=== PATIENT | female | born 1970 | race Caucasian/White ===

== ENCOUNTER 2021-11-11 08:15 | Emergency (ER) | payer MEDICARE, MEDICAID, SELFPAY ==
[2021-11-11 08:30] VITALS: BP 122/79; PULSE 104; RESP 18; TEMP 36.6; O2SAT 97
--- NOTE | 2021-11-11 08:44 | ED.SKABFB ---
HPI - Skin/Abscess/Foreign Bdy General Chief complaint: Skin/Abscess/Foreign Body Stated complaint: left side of face swollen and red Time Seen by Provider: 11/11/21 08:50 Source: patient and RN notes reviewed Mode of arrival: ambulatory Limitations: no limitations History of Present Illness HPI narrative: patient states that she felt like bite or a sting on her ear 2 days ago. Lorena more swelling began with redness. She has been putting on some antibiotic ointment and taking some Benadryl for the itching. She denies any fever chills. complaint: rash Onset (ago): day(s) (2) Location: face Severity: moderate Quality: burning, dull and constant Pain Consistency: constant Relieving factors: none Exacerbating factors: palpation Context: none Associated symptoms: denies other symptoms Treatments prior to arrival: OTC topical medication and Benadryl Related Data Home Medications Medication Instructions Recorded Confirmed acetic acid 5 drp RIGHT EAR QID 11/11/21 11/11/21 atorvastatin 40 mg PO DAILY 11/11/21 11/11/21 empagliflozin [Jardiance] 10 mg PO BID 11/11/21 11/11/21 hydroxychloroquine 200 mg PO BID 11/11/21 11/11/21 levothyroxine 25 mcg PO DAILY 11/11/21 11/11/21 levothyroxine 200 mcg PO DAILY 11/11/21 11/11/21 lorazepam 1 mg PO QID 11/11/21 11/11/21 naproxen 500 mg PO DAILY 11/11/21 11/11/21 semaglutide [Rybelsus] 14 mg PO QAM 11/11/21 11/11/21 tramadol 50 mg PO QID 11/11/21 11/11/21 Allergies Allergy/AdvReac Type Severity Reaction Status Date / Time Sulfa (Sulfonamide Allergy Severe Anaphylactic Verified 11/11/21 08:51 Antibiotics) Shock cephalexin [From Keflex] Allergy Rash Verified 11/11/21 08:51 Review of Systems Review of Systems: All systems reviewed & are unremarkable except as noted in HPI and below Constitutional: Constitutional: Denies chills and Denies fever(s) Respiratory: Respiratory: Denies cough and Denies dyspnea Gastrointestinal: Gastrointestinal: Denies nausea and Denies vomiting [facility] Past Medical History Medical History (Updated 11/11/21 @ 09:04 by Charles Fitzgerald MD) Arthritis Depression with anxiety Fibromyalgia Type 2 diabetes mellitus Surgical History Surgical History (Updated 11/11/21 @ 08:45 by Charles Fitzgerald MD) H/O elbow surgery History of section Hx of cholecystectomy Social History Social History (Updated 11/11/21 @ 08:45 by Charles Fitzgerald MD) Smoking packs per day: 1 Smoking cigarettes per day: 20.0 Smoking status: Current every day smoker Tobacco type: cigarettes Exam Const: General: healthy appearing, no acute distress and alert Nutritional Appearance: well nourished and obese morbidly obese Orientation/consciousness: patient oriented x3 HENMT: Head: normal to inspection General nose exam: Normal external nose present Mouth: Yes lip normal and Yes moist mucous membranes Eyes: Conjunctivae: conjunctivae normal Pupils: Equal, round and reactive pupils present EOM: EOMs intact bilaterally Neck: Neck: normal visual inspection and no lymphadenopathy Resp: Effort & Inspection: normal respiratory effort Auscultation: clear to auscultation bilaterally Cardio: Rate: regular rate Rhythm: regular rhythm GI: Auscultation: normal bowel sounds Back/Spine/Pelvis: Cervical Spine: cervical ROM normal Thoracic/Lumbar Spine: thoraco-lumbar ROM normal Skin: Rashes: rashes noted maculopapular rash left face surface erythematous and indurated, tender and other ( Erysipelas appearing rash around the pin and base of the left ear extending anteriorly over the TMJ and the left malar cheek) Neuro: General: patient oriented x3, moves all extremities, no meningeal signs, no focal motor deficits and CN's II-XI intact bilaterally Speech: normal speech Gait exam (Neuro): Normal gait present Extrem: General: normal to inspection and no clubbing, cyanosis or edema Psych: Appearance: grossly normal and well kempt Mental Status: mental statu
[2021-11-11] MEDS: PENICILLIN G BENZATHINE 1,200,000 UNITS/2 ML SYRINGE 2400000 UNITS IM (09:11)
== END 2021-11-11 09:30 | disposition home or self-care (01) ==
PROVIDERS: Emergency Provider Emergency Medicine
DX: A46 Erysipelas (principal)
CPT/HCPCS: 96372; 99283; J0561

== ENCOUNTER 2022-03-14 22:55 | Inpatient (IN) | payer MEDICARE, MEDICAID, SELFPAY ==
--- NOTE | ~2022-03-14 | XR_ITS ---
EXAMINATION: XR chest 1V portable INDICATION: Dizziness, COVID 19 positive TECHNIQUE: Portable AP chest at 2328 hours COMPARISON: 07/22/2018 FINDINGS: There are mild, diffuse interstitial and airspace opacities. No pleural effusion or pneumot horax identified. The cardiomediastinal silhouette size is within normal limits for technique. IMPRESSION: 1. Mild diffuse lung disease, likely pneumonia versus pulmonary edema. Reviewed, dictated and finalized at location A.
--- NOTE | 2022-03-14 23:07 | ED.DIZZY ---
HPI - Dizziness General Chief Complaint: Dizziness Stated Complaint: dehydration, dizziness Time Seen by Provider: 03/14/22 23:08 History of Present Illness HPI Narrative: 51-year-old female, Smoker with a history of hypertension, diabetes mellitus, hypothyroidism, dyslipidemia, RA was diagnosed to have COVID 2 days ago. She has been symptomatic for 1 week prior to that with nonproductive cough and upper respiratory symptoms. She presents to the ER with -- Ongoing nonproductive cough -- multiple episodes of diarrhea without any nausea and vomiting -- dizziness which started after she attempted to get off the commode. MD elicited complaint: dizziness and lightheadedness Onset (ago): hour(s) ( dizziness started 2 hours ago) Timing: sudden onset Severity: moderate Description: lightheadedness History of similar symptoms: No Exacerbating factors: change in body position Relieving factors: nothing Associated symptoms: denies other symptoms and nasal congestion Related Data Home Medications Medication Instructions Recorded Confirmed acetic acid 2 % ear solution 5 drp RIGHT EAR QID 11/11/21 03/14/22 atorvastatin 40 mg tablet 40 mg PO DAILY 11/11/21 03/14/22 empagliflozin 10 mg tablet 10 mg PO BID 11/11/21 03/14/22 (Jardiance) hydroxychloroquine 200 mg tablet 200 mg PO BID 11/11/21 03/14/22 levothyroxine 200 mcg tablet 200 mcg PO DAILY 11/11/21 03/14/22 levothyroxine 25 mcg tablet 25 mcg PO DAILY 11/11/21 03/14/22 lorazepam 1 mg tablet 1 mg PO QID 11/11/21 03/14/22 naproxen 500 mg tablet 500 mg PO DAILY 11/11/21 03/14/22 semaglutide 14 mg tablet (Rybelsus) 14 mg PO QAM 11/11/21 03/14/22 tramadol 50 mg tablet 50 mg PO QID 11/11/21 03/14/22 Allergies Allergy/AdvReac Type Severity Reaction Status Date / Time Sulfa (Sulfonamide Allergy Severe Anaphylactic Verified 03/14/22 23:11 Antibiotics) Shock cephalexin [From Keflex] Allergy Rash Verified 03/14/22 23:11 Review of Systems Review of Systems: All systems reviewed & are unremarkable except as noted in HPI and below Constitutional: Constitutional: Reports as per HPI and Reports no additional constitutional complaints Eyes: Eyes: Reports as per HPI and Reports no additional eye complaints ENT: Reports system reviewed and no additional complaints, except as documented and Reports nasal congestion Cardiovascular: Cardiovascular: Reports as per HPI and Reports no additional cardiovascular complaints Respiratory: Respiratory: Reports as per HPI and Reports cough Comments: denies shortness of breath Gastrointestinal: Gastrointestinal: Reports as per HPI and Reports diarrhea Genitourinary: Genitourinary: Reports no additional female genitourinary complaints Musculoskeletal: Musculoskeletal: Reports no additional musculoskeletal complaints and Reports as per HPI Integumentary/Breasts: Skin/Breast: Reports system reviewed and no additional complaints, except as docu and Reports as per HPI Neurologic: Reports system reviewed and no additional complaints, except as documented, Reports as per HPI and Reports dizziness Psychiatric: Psychiatric: Reports no additional psychiatric complaints and Reports as per HPI Endocrine: Endocrine: Reports no additional endocrine complaints and Reports as per HPI Hematologic/Lymphatic: Hematologic/Lymphatic: Reports no additional hematologic/lymphatic complaints and Reports as per HPI Allergic/Immunologic: Allergic/Immunologic: Reports no additional allergic/immunologic complaints [facility] Past Medical History Medical History Arthritis Depression with anxiety Fibromyalgia Type 2 diabetes mellitus Surgical History Surgical History (Updated 11/11/21 @ 08:45 by Charles Fitzgerald MD) H/O elbow surgery History of section Hx of cholecystectomy Social History Social History (Updated 11/11/21 @ 08:45 by Charles Fitzgerald MD) Smoking packs per day: 1 Smoking cigare
[2022-03-14 23:15] VITALS: BP 117/69; PULSE 64; RESP 18; TEMP 36.7; O2SAT 94
--- NOTE | 2022-03-14 23:18 | ECG_ITS ---
Measurements Intervals [place] Rate: 61 P: 68 [place]: 202 QRS: 33 QRSD: 87 T: 60 QT: 421 QTc: 425 Interpretive Statements SINUS RHYTHM BASELINE ARTIFACT NOTED GROSSLY NORMAL ECG LOW QRS VOLTAGE IN PRECORDIAL LEADS [QRS DEFLECTION < 1.0 mV IN CHEST LEADS] NO PREVIOUS ECG AVAILABLE FOR COMPARISON Electronically Signed On 03-15-2022 7:58:57 CDT by Dread German M.D.
[2022-03-14] MEDS: LACTATED RINGERS 1,000 ML 999 ML IV CONT (23:38)
[2022-03-14 23:40] LABS: Basophils Absolute Auto 0.01 K/mm3 (0.00-0.10); Basophils Percent Auto 0.2 % (0.0-1.0); Eosinophils Absolute Auto 0.16 K/mm3 (0.02-0.50); Eosinophils Percent Auto 3.9 % (1.0-6.0); Hematocrit 42.4 % (35.0-49.0); Hemoglobin 13.8 g/dL (12.0-15.0); Immature Granulocyte Absolute 0.02 K/mm3 (0.00-0.00); Immature Granulocyte Percent A 0.5 % (0.0-0.0); Lymphocytes Absolute Auto 1.53 K/mm3 (1.10-4.50); Lymphocytes Percent Auto 36.9 % (18.0-42.0); Mean Corpuscular HGB Conc 32.5 g/dL (32.0-36.0); Mean Corpuscular Hemoglobin 30.6 pg (27.0-31.0); Mean Platelet Volume 10.5 fl (9.2-11.8); Monocytes Absolute Auto 0.17 K/mm3 (0.10-0.90); Monocytes Percent Auto 4.1 % (2.0-11.0); Neutrophils Absolute Auto 2.3 K/mm3 (1.7-7.2); Neutrophils Percent Auto 54.4 % (50.0-70.0); Platelet Count Result 174 K/mm3 (150-420); Red Blood Count 4.51 M/mm3 (4.20-5.40); White Blood Count 4.2 K/mm3 (4.8-10.8)
[2022-03-14 23:56] LABS: Partial Thromboplastin Time 27.8 SEC (23.90-30.70); Prothrombin Time 10.9 Seconds (9.50-12.10)
[2022-03-15] LABS: Lactic Acid Reflex 0.4 mmol/L (0.4-2.0)
[2022-03-15 00:07] LABS: Alanine Aminotransferase 40 U/L (14-59); Albumin Level 3.4 g/dL (3.4-5.0); Alkaline Phosphatase 75 U/L (46-116); Anion Gap 6 mmol/L (8-16); Aspartate Amino Transferase 19 U/L (15-37); Bilirubin,Total 0.3 mg/dL (0.00-1.00); Blood Urea Nitrogen 9 mg/dL (7-18); Calcium 8.2 mg/dL (8.5-10.1); Carbon Dioxide 27 mmol/L (21-32); Chloride 111 mmol/L (98-108); Estimated Glomerular Filt Rate > 60; Glucose 125 mg/dL (70-99); NT Pro B Type Natriuretic Pept 104 pg/mL (0-125); Osmolality Calculated 297 mOsm/kg (285-295); Sodium 144 mmol/L (136-145); Total Protein 6.3 g/dL (6.4-8.2)
[2022-03-15 00:08] LABS: D Dimer 0.43 mg/L (0.19-0.50)
[2022-03-15 00:11] LABS: Troponin I 9.2 ng/L (0.00-60.4)
[2022-03-15 00:17] LABS: Lipase 55 U/L (73-393)
[2022-03-15 00:19] LABS: SARS-CoV-2 RNA PCR Positive (Negative)
[2022-03-15 00:34] LABS: Influenza Control Valid (Valid)
[2022-03-15 01:42] LABS: CRP < 0.5 mg/dL (0.0-0.9)
[2022-03-15 01:55] VITALS: BP 135/87; PULSE 61; RESP 16; O2SAT 95
[2022-03-15 02:59] VITALS: BP 141/87; PULSE 63; RESP 18; TEMP 36.2; O2SAT 96
[2022-03-15 03:00] VITALS: PULSE 63
[2022-03-15] MEDS: REMDESIVIR 200 MG/NS 250 ML 200 MG/250 ML BAG 250 MG IVPB (03:20)
[2022-03-15] MEDS: LEVOTHYROXINE SODIUM 25 MCG TABLET PO (06:18)
[2022-03-15] MEDS: LEVOTHYROXINE SODIUM 100 MCG TABLET 200 MCG PO (06:18)
--- NOTE | 2022-03-15 06:59 | ADMGEN ---
This patient, Stacie Perez, was admitted to 2nd Floor Room 210-1. Patient/family oriented to hospital policies and general routines including ID bracelet, bed and alarms, visiting hours, pain management, procedures, bathroom and other care routines, personal items, smoking policy, room service/diet, and visiting hours. Information on how to activate the Rapid Response Team has been discussed. Patient/Family are encouraged to report perceived risks to care and to ask questions if they do not understand what they are told or what they should do.
[2022-03-15 07:39] VITALS: PULSE 66
[2022-03-15 07:48] VITALS: BP 137/88; PULSE 63; RESP 18; TEMP 36.6; O2SAT 94
[2022-03-15] MEDS: ENOXAPARIN 40 MG/0.4 ML SYRINGE SUB-Q (08:08)
[2022-03-15] MEDS: ATORVASTATIN 40 MG TABLET PO (08:08)
[2022-03-15] MEDS: POTASSIUM CHLORIDE 20 MEQ TABLET PO (08:09)
[2022-03-15] MEDS: EMPAGLIFLOZIN 10 MG TABLET PO (08:53)
--- NOTE | 2022-03-15 10:53 | PM.SD2 ---
Same Day Admit/Disch: HPI History of Present Illness Chief complaint: dehydration, dizziness Narrative: Stacie Perez is a 51 year old female that presented to the emergency room with some dizziness and diarrhea patient is positive for COVID-19. Patient was admitted with some hypokalemia potassium was 3.0 first dose of remdesivir was given in the emergency room patient placed on droplet isolation and resting in the room. [facility] Past Medical History Medical History Arthritis Depression with anxiety Fibromyalgia Type 2 diabetes mellitus Surgical History Surgical History H/O elbow surgery History of section Hx of cholecystectomy Social History Social History Smoking packs per day: 1 Smoking cigarettes per day: 20.0 Smoking status: Current every day smoker Tobacco type: cigarettes Second hand tobacco smoke exposure: No Alcohol intake: unknown Substance use: never Substance use type: does not use Spiritual care concerns: No Comments At time as signature, I have reviewed and agree with nursing past medical, social, surgical and family history. Please see nursing chart for further information. There is no relevant family history pertinent to the presenting complaint. Same Day Admit/Disch: Med Pre-admit Medications Home Medications Medication Instructions Recorded Confirmed Type acetic acid 2 % ear solution 5 drp RIGHT EAR QID 11/11/21 03/14/22 History atorvastatin 40 mg tablet 40 mg PO DAILY 11/11/21 03/14/22 History empagliflozin 10 mg tablet 10 mg PO BID 11/11/21 03/14/22 History (Jardiance) hydroxychloroquine 200 mg tablet 200 mg PO BID 11/11/21 03/14/22 History levothyroxine 200 mcg tablet 200 mcg PO DAILY 11/11/21 03/14/22 History levothyroxine 25 mcg tablet 25 mcg PO DAILY 11/11/21 03/14/22 History lorazepam 1 mg tablet 1 mg PO QID 11/11/21 03/14/22 History naproxen 500 mg tablet 500 mg PO DAILY 11/11/21 03/14/22 History semaglutide 14 mg tablet (Rybelsus) 14 mg PO QAM 11/11/21 03/14/22 History tramadol 50 mg tablet 50 mg PO QID 11/11/21 03/14/22 History potassium chloride 20 mEq 20 meq PO BIDWM #6 tabs 03/15/22 Rx tablet,extended release (K-Tab) Exam Narrative: GENERAL:Well-appearing, well-nourished, and in no acute distress. Sweaty HEAD:Normocephalic, atraumatic. EYES: PERRLA and EOMI. ENT: Nares clear, no rhinorrhea or epistaxis. Mucous membranes moist. CHEST: Clear to auscultation. No respiratory distress. HEART: Regular rate and rhythm. Normal peripheral pulses. ABDOMEN: Soft, nontender, nondistended, normal active bowel sounds. EXTREMITIES: Normal range of motion. No edema. SKIN: Warm, dry, no rash. NEURO: No focal deficits. Alert and oriented x3. DS: Data Data Completed and Pending Labs on day of discharge: Labs from last 24 hours 03/15/22 03/14/22 03/14/22 01:15 23:32 23:31 WBC RBC Hgb Hct MCV MCH MCHC RDW Plt Count MPV Immature Gran % (Auto) Neut % (Auto) Lymph % (Auto) [place] % (Auto) Eos % (Auto) Baso % (Auto) Lymph # (Auto) [place] # (Auto) Eos # (Auto) Baso # (Auto) Abs Immat Gran (auto) Absolute Neuts (auto) Absolute Nucleated RBC Nucleated RBC % PT INR APTT D-Dimer Sodium 144 Potassium 3.0 L Chloride 111 H Carbon Dioxide 27 Anion Gap 6 L BUN 9 Creatinine 0.71 Estim Creat Clear Calc Not Reportable Estimated GFR > 60 Glucose 125 H Calculated Osmolality 297 H Lactic Acid Calcium 8.2 L Total Bilirubin 0.3 AST 19 ALT 40 Alkaline Phosphatase 75 Troponin I 9.2 C-Reactive Protein < 0.5 NT-Pro-B Natriuret Pep 104 Total Protein 6.3 L Albumin 3.4 Lipase 55 L Influenza Type A Ag Influenza Type B Ag IZZY
[2022-03-15 12:00] VITALS: BP 128/76; PULSE 66; PULSE 68; RESP 18; TEMP 36.7; O2SAT 95
--- NOTE | 2022-03-15 13:28 | PC.NURSE ---
Discharge instructions given to patient. IV and telemetry device removed. Patient voices understanding of discharge instructions and is actively looking for a ride home at this time.
--- NOTE | 2022-03-15 13:45 | PC.NURSE ---
Patient left unit in w/c accompanied by instructional writer in w/c. Public transport service escorted patient off campus to home.
--- NOTE | 2022-03-18 15:50 | PC.NURSE ---
Unable to contact for discharge call back.
== END 2022-03-15 13:45 | disposition home or self-care (01) | DRG 177 ==
LOC: CHSED 03-15 01:23 → CHS2ND 03-15 11:09
PROVIDERS: Admitting Provider Internal Medicine; Emergency Provider Internal Medicine Critical Care Medicine; Visit Provider Internal Medicine
DX: U07.1 COVID-19 (principal); J12.82 Pneumonia due to coronavirus disease 2019; E87.6 Hypokalemia; E11.9 Type 2 diabetes mellitus without complications; E06.3 Autoimmune thyroiditis; M06.9 Rheumatoid arthritis, unspecified; M79.7 Fibromyalgia; F17.210 Nicotine dependence, cigarettes, uncomplicated; F32.A Depression, unspecified
CPT/HCPCS: 36415; 71045; 80053; 83605; 83690; 83880; 84484; 85025; 85380; 85610; 85730; 86140; 87040; 87804; 93005; 96360; 99285; A9270; C9803; J0248; J0456; J1650; J7120; U0003; U0005

== ENCOUNTER 2022-09-04 18:05 | Emergency (ER) | payer MEDICARE, MEDICAID, SELFPAY ==
[2022-09-04 19:35] VITALS: BP 140/80; PULSE 94; RESP 18; TEMP 36.6; O2SAT 99
--- NOTE | 2022-09-04 20:07 | ED.ALLEREA ---
HPI - Allergic Reaction General Chief complaint: Allergic Reaction Stated complaint: allergic reaction Time Seen by Provider: 09/04/22 18:06 Source: patient Mode of arrival: ambulatory Limitations: no limitations History of Present Illness HPI narrative: this is a 52-year-old female with lesion on her posterior scalp that is open and draining apparently had use some shampoo causing inflammation to her scalp and to her right ear with some pain and itching with no fever chills. MD complaint: allergic reaction Onset (ago): day(s) Symptoms: rash, itching and other ( lesion on posterior scalp) Related Data Home Medications Medication Instructions Recorded Confirmed acetic acid 2 % ear solution 5 drp RIGHT EAR QID 11/11/21 09/04/22 atorvastatin 40 mg tablet 40 mg PO DAILY 11/11/21 09/04/22 empagliflozin 10 mg tablet 10 mg PO BID 11/11/21 09/04/22 (Jardiance) hydroxychloroquine 200 mg tablet 200 mg PO BID 11/11/21 09/04/22 levothyroxine 200 mcg tablet 200 mcg PO DAILY 11/11/21 09/04/22 levothyroxine 25 mcg tablet 25 mcg PO DAILY 11/11/21 09/04/22 lorazepam 1 mg tablet 1 mg PO QID 11/11/21 09/04/22 naproxen 500 mg tablet 500 mg PO DAILY 11/11/21 09/04/22 semaglutide 14 mg tablet (Rybelsus) 14 mg PO QAM 11/11/21 09/04/22 tramadol 50 mg tablet 50 mg PO QID 11/11/21 09/04/22 bupropion HCl 150 mg 24 hr tablet, 150 mg PO DAILY 09/04/22 09/04/22 extended release citalopram 40 mg tablet 40 mg PO DAILY 09/04/22 09/04/22 glipizide 10 mg tablet 10 mg PO DAILY 09/04/22 09/04/22 magnesium oxide 500 mg tablet 500 mg PO DAILY 09/04/22 09/04/22 Allergies Allergy/AdvReac Type Severity Reaction Status Date / Time Sulfa (Sulfonamide Allergy Severe Anaphylactic Verified 09/04/22 19:57 Antibiotics) Shock cephalexin [From Keflex] Allergy Rash Verified 09/04/22 19:57 gabapentin AdvReac Confusion Verified 09/04/22 19:57 Review of Systems Review of Systems: All systems reviewed & are unremarkable except as noted in HPI and below PMFSH Past Medical History Medical History Arthritis Depression with anxiety Fibromyalgia Type 2 diabetes mellitus Surgical History Surgical History H/O elbow surgery History of section Hx of cholecystectomy Social History Social History Smoking packs per day: 1 Smoking cigarettes per day: 20.0 Smoking status: Current every day smoker Tobacco type: cigarettes Second hand tobacco smoke exposure: No Alcohol intake: unknown Substance use: never Substance use type: does not use Spiritual care concerns: No Exam Const: General: healthy appearing Nutritional Appearance: well nourished Limitations: no limitations HENMT: Head: normal to inspection Ears: external ears normal ( Tenderness and itching right ear) Face and sinus: normal facial exam Mouth: Yes Normal oral and palatal mucosa present Eyes: Conjunctivae: conjunctivae normal Pupils: Equal, round and reactive pupils present EOM: EOMs intact bilaterally Neck: Neck: normal visual inspection Chest: Chest palpation & inspection: normal inspection of the chest Resp: Effort & Inspection: normal respiratory effort Auscultation: clear to auscultation bilaterally Cardio: Rhythm: regular rhythm GI: GI Palp: Yes Soft to palpation Auscultation: normal bowel sounds : General: Yes bladder normal to palpation Urinary Catheter: Urinary Catheter: patent and draining Back/Spine/Pelvis: Back: no CVA tenderness Skin: General skin exam: normal color Other: lesion that is draining on the posterior mid scalp Neuro: General: patient oriented x3 Cranial nerves: Yes Nystagmus not present Speech: normal speech Gait exam (Neuro): Normal gait present Extrem: General: normal to inspection Psych: Mental Status: mental status grossly normal Affect: normal
[2022-09-04] MEDS: CLINDAMYCIN HCL 150 MG CAP 300 MG PO (20:26)
[2022-09-04] MEDS: methylPREDNISolone ACETATE 40 MG/ML VIAL 80 MG IM (20:27)
[2022-09-04] MEDS: predniSONE 20 MG TABLET PO (20:27)
[2022-09-04] MEDS: NAPROXEN 250 MG TABLET 500 MG PO (20:27)
[2022-09-04 20:55] VITALS: BP 138/80; PULSE 80; RESP 18; TEMP 36.7; O2SAT 98
== END 2022-09-04 20:55 | disposition home or self-care (01) ==
PROVIDERS: Emergency Provider Emergency Medicine
DX: L02.811 Cutaneous abscess of head [any part, except face] (principal); F41.9 Anxiety disorder, unspecified; F32.9 Major depressive disorder, single episode, unspecified; E11.9 Type 2 diabetes mellitus without complications; F17.210 Nicotine dependence, cigarettes, uncomplicated; Z79.1 Long term (current) use of non-steroidal anti-inflammatories (NSAID); Z79.891 Long term (current) use of opiate analgesic
CPT/HCPCS: 96372; 99283; A9270; J1030; J7512

== ENCOUNTER 2023-06-13 10:15 | Observation (INO) | payer MEDICARE, MEDICAID, SELFPAY ==
[2023-06-13] VITALS (27 sets, daily range): BP systolic 111–162; BP diastolic 79–96; PULSE 53–96; RESP 11–21; TEMP 36.3–36.8; O2SAT 93–98; BMI 43.0
--- NOTE | ~2023-06-13 | XR_ITS ---
XR chest 2V 06/13/2023 10:49 Indication: Chest pain Procedure: AP and lateral views of the chest Comparison: 03/14/2022 Findings: Heart size upper normal. No focal air space disease, pulmonary edema, pleural effusion or s uspected pneumothorax. There is a new pulmonary nodule left upper thorax measuring 12 mm. Impression: 1: No acute cardiopulmonary disease. 2: New 12 mm nodule left upper thorax which may represent chronic granulomatous disease, although mal ignancy not excluded. Reviewed, dictated and finalized at location A. Impression: 1: No acute cardiopulmonary disease. 2: New 12 mm nodule left upper thorax which may represent chronic granulomatous disease, although malignancy not excluded.
--- NOTE | ~2023-06-13 | CT_ITS ---
EXAMINATION: CTA chest PE protocol DATE: 06/13/2023 11:50 CDT INDICATION: Chest pain and shortness of breath TECHNIQUE: Computed tomographic angiography (CTA) of the chest was performed with 100 mL Omnipaque-35 0 intravenous contrast. The dose-length product was 915.06 mGy-cm. Maximum intensity projection 3D-re constructions of the aorta and other arteries were constructed by the technologist on a separate work station. COMPARISON: Chest dated 06/13/2023. FINDINGS: Study is technically adequate without evidence for pulmonary embolism. No evidence for aort ic aneurysm or dissection. There is an 11 mm right upper lobe nodule abutting the pulmonary artery, i mage 87. There is mediastinal lymphadenopathy. No significant pleural or pericardial effusion. Status post cholecystectomy. There is dependent atelectasis. No pneumothorax. There is emphysema. There are patchy groundglass opacities which may reflect atelectasis or pneumonia. There is a 5 mm right lower lobe nodule, image 52. Mild thoracic spondylosis. IMPRESSION: 1. No evidence for pulmonary embolism. 2: Patchy groundglass opacities with dependent atelectasis. Cannot exclude superimposed pneumonia. 3: Right upper and lower lobe nodules, largest in the upper lobe measuring 11 mm. Recommend follow-up low dose CT chest in 3 months or pet/CT examination. 4: Mediastinal lymphadenopathy, nonspecific. Reviewed, dictated and finalized at location A. IMPRESSION: 1. No evidence for pulmonary embolism. 2: Patchy groundglass opacities with dependent atelectasis. Cannot exclude sup erimposed pneumonia. 3: Right upper and lower lobe nodules, largest in the upper lobe measuring 11 m m. Recommend follow-up low dose CT chest in 3 months or pet/CT examination. 4: Mediastinal lymphadenopathy, nonspecific.
--- NOTE | 2023-06-13 10:18 | ECG_ITS ---
Measurements Intervals [place] Rate: 64 P: 34 MT: 181 QRS: -6 QRSD: 110 T: 113 QT: 404 QTc: 418 Interpretive Statements SINUS RHYTHM DELAYED PRECORDIAL R/S TRANSITION ST-T WAVE ABNORMALITY IN ANTERIOR LEADS- CONSIDER ISCHEMIA ABNORMAL ECG COMPARED TO ECG 03/14/2022 23:47:15 ST-T WAVE ABNORMALITY NOW PRESENT Electronically Signed On 06-13-2023 10:49:15 CDT by Jethro Rossi D.O.
--- NOTE | 2023-06-13 10:31 | ED.GENADULT ---
HPI - General Adult General Chief complaint: Chest Pain Stated complaint: chest pain Time Seen by Provider: 06/13/23 10:21 History of Present Illness HPI narrative: Stacie Perez is a 53 y/o female with PMHx of DM, HLD, Smoker, hypothyroidism, anxiety, depression, RA, Fibromyalgia who presents today with reports of having bilateral shoulder and chest tightness that started about 1 and a half hours [employer]. She states that she woke up today at around 0600 and felt anxious so she took her PO Ativan. She went to work and then at around 0900 she started to feel more anxious with tightness in her shoulders and chest and she feels like it is hard to take a deep breath. Denies hx of IA/Cardiac Stents/ cardiac surgery in the past. Related Data Home Medications Medication Instructions Recorded Confirmed acetic acid 2 % ear solution 5 drp RIGHT EAR QID 11/11/21 09/04/22 atorvastatin 40 mg tablet 40 mg PO DAILY 11/11/21 09/04/22 empagliflozin 10 mg tablet 10 mg PO BID 11/11/21 09/04/22 (Jardiance) hydroxychloroquine 200 mg tablet 200 mg PO BID 11/11/21 09/04/22 levothyroxine 200 mcg tablet 200 mcg PO DAILY 11/11/21 09/04/22 levothyroxine 25 mcg tablet 25 mcg PO DAILY 11/11/21 09/04/22 lorazepam 1 mg tablet 1 mg PO QID 11/11/21 09/04/22 naproxen 500 mg tablet 500 mg PO DAILY 11/11/21 09/04/22 semaglutide 14 mg tablet (Rybelsus) 14 mg PO QAM 11/11/21 09/04/22 tramadol 50 mg tablet 50 mg PO QID 11/11/21 09/04/22 bupropion HCl 150 mg 24 hr tablet, 150 mg PO DAILY 09/04/22 09/04/22 extended release citalopram 40 mg tablet 40 mg PO DAILY 09/04/22 09/04/22 glipizide 10 mg tablet 10 mg PO DAILY 09/04/22 09/04/22 magnesium oxide 500 mg tablet 500 mg PO DAILY 09/04/22 09/04/22 Allergies Allergy/AdvReac Type Severity Reaction Status Date / Time Sulfa (Sulfonamide Allergy Severe Anaphylactic Verified 09/04/22 19:57 Antibiotics) Shock cephalexin [From Keflex] Allergy Rash Verified 09/04/22 19:57 gabapentin AdvReac Confusion Verified 09/04/22 19:57 Review of Systems Review of Systems: CONSTITUTIONAL: Denies fever, chills, or sweats. EYES: Denies visual changes, redness, or discharge. ENT: Denies rhinorrhea, congestion, sore throat, or otalgia. CARDIOVASCULAR: Reports chest tightness severity of a 7/10 RESPIRATORY: Denies cough or dyspnea. GASTROINTESTINAL: Denies abdominal pain, nausea, vomiting, or diarrhea. GENITOURINARY: Denies dysuria or hematuria. SKIN: Denies rash or itching. MUSCULOSKELETAL: Denies back pain, joint pain, or myalgia. NEUROLOGIC: Denies headache, numbness, dizziness, or weakness. PSYCHIATRIC: Denies anxiety or depression. [facility] Past Medical History Medical History Arthritis Depression with anxiety Fibromyalgia Type 2 diabetes mellitus Surgical History Surgical History H/O elbow surgery History of section Hx of cholecystectomy Social History Social History Smoking packs per day: 1 Smoking cigarettes per day: 20.0 Smoking status: Current every day smoker Tobacco type: cigarettes Second hand tobacco smoke exposure: No Alcohol intake: unknown Substance use: never Substance use type: does not use Spiritual care concerns: No Exam Narrative: GENERAL: Well-appearing, well-nourished, and in no acute distress. HEAD: Normocephalic, atraumatic. EYES: PERRLA and EOMI. ENT: Nares clear, no rhinorrhea or epistaxis. Mucous membranes moist. Oropharynx without tonsillar hypertrophy exudate or other lesions. NECK: Supple. No adenopathy or masses. No carotid bruits or JVD CHEST:No respiratory distress. No wheezes rales or rhonchi HEART: Regular rate and rhythm. No murmur heard. Normal peripheral pulses. ABDOMEN: Soft, nontender, nondistended, normal active bowel sounds. EXTREMITIES: Normal range of motion. No edema. SK
[2023-06-13 10:45] LABS: Basophils Absolute Auto 0.1 K/mm3 (0.0-0.1); Basophils Percent Auto 0.7 % (0.2-1.2); Eosinophils Absolute Auto 0.3 K/mm3 (0-0.3); Eosinophils Percent Auto 4.9 % (0-4.4); Hematocrit 42.9 % (37.0-47.0); Hemoglobin 14.6 g/dL (12.0-15.0); Immature Granulocyte Absolute 0.02 K/mm3 (0.00-0.031); Immature Granulocyte Percent A 0.3 % (0-0.5); Lymphocytes Absolute Auto 1.52 K/mm3 (0.9-3.2); Lymphocytes Percent Auto 22.5 % (18.3-44.2); Mean Corpuscular Hemoglobin 32.7 pg (26-34); Mean Platelet Volume 11.4 fl (7.4-10.4); Monocytes Absolute Auto 0.3 K/mm3 (0.1-0.6); Monocytes Percent Auto 3.7 % (2.6-8.5); Neutrophils Absolute Auto 4.6 K/mm3 (1.3-6.7); Neutrophils Percent Auto 67.9 % (45.5-73.1); Platelet Count Result 166 k/mm3 (150-375); Red Blood Count 4.47 M/mm3 (4.2-5.4); Red Cell Distribution Width 13.7 % (11.5-14.5); White Blood Count 6.8 K/mm3 (4.5-10.0)
[2023-06-13 10:56] LABS: Alanine Aminotransferase 25 U/L (6-35); Albumin Level 4.5 g/dL (3.5-5.1); Alkaline Phosphatase 74 U/L (38-126); Anion Gap 10 mmol/L (8-16); Aspartate Amino Transferase 22 U/L (14-36); Bilirubin,Total 0.7 mg/dL (0.2-1.3); Blood Urea Nitrogen 14 mg/dL (7-17); Calcium 9.1 mg/dL (8.4-10.2); Carbon Dioxide 23 mmol/L (22-30); Chloride 100 mmol/L (98-107); Estimated CRCL calculation 113 ml/min; Estimated Glomerular Filt Rate > 60; Glucose 424 mg/dL (65-110); Lipase 58 U/L (23-300); Prothrombin Time 13.5 Seconds (11.1-14.7); Sodium 133 mmol/L (137-145)
[2023-06-13 10:57] LABS: Partial Thromboplastin Time 32.5 SECONDS (22.3-36.8)
[2023-06-13 11:07] LABS: Troponin I < 0.012 ng/mL (0.000-0.034)
[2023-06-13] MEDS: SODIUM CHLORIDE 0.9% IV 1,000 ML 999 ML IV CONT (11:14)
[2023-06-13 12:44] LABS: Glucose Point of Care 346 mg/dl (65-105)
[2023-06-13 13:41] LABS: Troponin I < 0.012 ng/mL (0.000-0.034)
[2023-06-13 14:05] LABS: Glucose Point of Care 345 mg/dl (65-105)
--- NOTE | 2023-06-13 14:48 | PC.NURSE ---
This patient, Stacie Perez, was admitted to Medical Room 252-01. Patient/family oriented to hospital policies and general routines including ID bracelet, bed and alarms, visiting hours, pain management, procedures, bathroom and other care routines, personal items, smoking policy, room service/diet, and visiting hours. Information on how to activate the Rapid Response Team has been discussed. Patient/Family are encouraged to report perceived risks to care and to ask questions if they do not understand what they are told or what they should do.
--- NOTE | 2023-06-13 14:48 | PM.IMHP ---
H&P: HPI History of Present Illness Date/Time: 06/13/23 14:48 Chief Complaint: chest tightness Narrative: This is a 53-year-old female patient with a history diabetes fibromyalgia, rheumatoid arthritis depression and anxiety who presented to emergency with chest tightness radiated into the back. Patient reports that she smokes heavily since she was a teenager. She notes an occasional but no difficulty breathing at this time. In the emergency department patient received 1 L of normal saline IV bolus was found to blood sugar over 400 on chemistry panel. Sodium was also noted to be decreased 133 but when corrected for glucose the true value is between [address] imaging of the chest shows 2 pulmonary nodules with recommended repeat imaging in 3 months. When patient found about this she became very tearful and wanted to leave against medical advice. She spoke to her family on phone and eventually decided to stay in the hospital. Meanwhile, repeat troponins have remained negative. EKG nonischemic. CTA negative for PE. Patient's noted chest tightness is improved. Patient reports that she recently moved few months ago and has not been back to see her primary care provider so she has run out of several medications including her medicines for diabetes. Review of Systems Review of Systems: All systems reviewed & are unremarkable except as noted in HPI and below PMFSH Past Medical History Medical History (Updated 06/13/23 @ 21:30 by Philip Delgado APRN) Arthritis Depression with anxiety Fibromyalgia Type 2 diabetes mellitus Surgical History Surgical History H/O elbow surgery History of section Hx of cholecystectomy Social History Social History Smoking packs per day: 1 Smoking cigarettes per day: 20.0 Years smoked: 37 Smoking pack-years: 37.00 Smoking status: Current every day smoker Tobacco type: cigarettes Second hand tobacco smoke exposure: No Alcohol intake: never Substance use: never Substance use type: does not use Lack of Transportation: YES Lack of Food: Sometimes True Current Housing: I Have Housing Concerned About Future Housing: No Difficulty Paying Gas/Electric Bills: No Difficulty Paying for Meds: No Currently Unemployed: No Education: Bachelor's Degree Difficulty w/ Childcare or Family Care: No Spiritual care concerns: No Meds Home Medications and Allergies Home Medications Medication Instructions Recorded Confirmed Type atorvastatin 40 mg tablet 40 mg PO DAILY 11/11/21 06/13/23 History empagliflozin 10 mg tablet 10 mg PO BID 11/11/21 06/13/23 History (Jardiance) hydroxychloroquine 200 mg tablet 200 mg PO BID 11/11/21 06/13/23 History levothyroxine 200 mcg tablet 200 mcg PO DAILY 11/11/21 06/13/23 History levothyroxine 25 mcg tablet 25 mcg PO DAILY 11/11/21 06/13/23 History lorazepam 1 mg tablet 1 mg PO QID PRN Anxiety 11/11/21 06/13/23 History semaglutide 14 mg tablet (Rybelsus) 14 mg PO QAM 11/11/21 06/13/23 History bupropion HCl 150 mg 24 hr tablet, 150 mg PO DAILY 09/04/22 06/13/23 History extended release citalopram 40 mg tablet 40 mg PO DAILY 09/04/22 06/13/23 History glipizide 10 mg tablet 10 mg PO DAILY 09/04/22 06/13/23 History naproxen 500 mg tablet 500 mg PO BID PRN pain #14 tabs 09/04/22 06/13/23 Rx tramadol 50 mg tablet 50 mg PO QID PRN Pain 06/13/23 06/13/23 History Allergies Allergy/AdvReac Type Severity Reaction Status Date / Time Sulfa (Sulfonamide Allergy Severe Anaphylactic Verified 09/04/22 19:57 Antibiotics) Shock cephalexin [From Keflex] Allergy Rash Verified 09/04/22 19:57 gabapentin AdvReac Confusion Verified 09/04/22 19:57 Vital Signs Vital Signs - 24 hr 06/13/23 10:17 06/13/23 10:31 06/13/23 10:49 Temperature 36.3 C L Pulse Rate 67 62 Respiratory Rate 14 14 Blood Pressur
[2023-06-13 16:22] LABS: Hemoglobin A1C 11.2 % (<5.7)
[2023-06-13 16:39] LABS: Troponin I < 0.012 ng/mL (0.000-0.034)
[2023-06-13 17:06] LABS: Glucose Point of Care 286 mg/dl (65-105)
[2023-06-13] MEDS: INSULIN ASPART (*BKC) 100 UNITS/ML SUB-Q ×2 (18:00→21:12)
[2023-06-13] MEDS: HYDROXYCHLOROQUINE SULFATE 200 MG TABLET PO (18:32)
[2023-06-13] MEDS: SODIUM CHLORIDE 0.9% IV 1,000 ML 250 ML IV CONT (18:33)
[2023-06-13 21:47] LABS: Glucose Point of Care 298 mg/dl (65-105)
[2023-06-13 22:05] LABS: Glucose Point of Care 227 mg/dl (65-105)
[2023-06-13] MEDS: SODIUM CHLORIDE 0.9% IV 1,000 ML 100 ML IV CONT (22:35)
[2023-06-14] VITALS: PULSE 54
[2023-06-14 04:00] VITALS: PULSE 55
[2023-06-14 05:24] VITALS: BP 111/69; PULSE 55; RESP 16; TEMP 36.5; O2SAT 96
[2023-06-14 05:54] LABS: Hematocrit 40.4 % (37.0-47.0); Hemoglobin 13.7 g/dL (12.0-15.0); Mean Corpuscular HGB Conc 33.9 g/dl (32-36); Mean Corpuscular Hemoglobin 32.9 pg (26-34); Mean Corpuscular Volume 96.9 fl (80-100); Mean Platelet Volume 11.2 fl (7.4-10.4); Platelet Count Result 160 k/mm3 (150-375); Red Blood Count 4.17 M/mm3 (4.2-5.4); Red Cell Distribution Width 13.5 % (11.5-14.5); White Blood Count 5.9 K/mm3 (4.5-10.0)
[2023-06-14] MEDS: LEVOTHYROXINE SODIUM 25 MCG TABLET PO (05:59)
[2023-06-14] MEDS: LEVOTHYROXINE SODIUM 100 MCG TABLET 200 MCG PO (05:59)
[2023-06-14 06:19] LABS: Alanine Aminotransferase 24 U/L (6-35); Albumin Level 3.9 g/dL (3.5-5.1); Alkaline Phosphatase 54 U/L (38-126); Anion Gap 5 mmol/L (8-16); Aspartate Amino Transferase 22 U/L (14-36); Bilirubin,Total 0.8 mg/dL (0.2-1.3); Blood Urea Nitrogen 8 mg/dL (7-17); Calcium 8.3 mg/dL (8.4-10.2); Carbon Dioxide 25 mmol/L (22-30); Chloride 106 mmol/L (98-107); Estimated CRCL calculation 113 ml/min; Estimated Glomerular Filt Rate > 60; Glucose 220 mg/dL (65-110); Potassium 3.9 mmol/L (3.4-5.0); Sodium 136 mmol/L (137-145)
[2023-06-14 08:00] VITALS: PULSE 61
[2023-06-14 08:19] LABS: Glucose Point of Care 241 mg/dl (65-105)
[2023-06-14] MEDS: INSULIN ASPART (*BKC) 100 UNITS/ML SUB-Q (08:33)
[2023-06-14] MEDS: SODIUM CHLORIDE 0.9% IV 1,000 ML 100 ML IV CONT (08:33)
[2023-06-14] MEDS: ATORVASTATIN 40 MG TABLET PO (08:34)
[2023-06-14] MEDS: CITALOPRAM HYDROBROMIDE 20 MG TABLET 40 MG PO (08:34)
[2023-06-14] MEDS: buPROPion HCL XL (24 HR) 150 MG TABCR PO (08:34)
[2023-06-14] MEDS: glipiZIDE 5 MG TABLET 10 MG PO (08:35)
[2023-06-14] MEDS: ENOXAPARIN 40 MG/0.4 ML SYRINGE SUB-Q (08:35)
[2023-06-14] MEDS: HYDROXYCHLOROQUINE SULFATE 200 MG TABLET PO (08:36)
--- NOTE | 2023-06-14 10:16 | PM.DS ---
DS: Admitting Diagnosis Discharge Date 06/14/2023 Admitting Diagnosis Chest pain DS: Discharge Diagnosis Discharge Diagnosis (1) Feeling of chest tightness: Code(s): R07.89 - Other chest pain Status: Acute Assessment and Plan: Negative troponin, CTA negative for PE, basal atelectasis noted do not suspect pneumonia as patient is afebrile and normal white blood cell count. This is likely a combination of elevated glucose and anxiety. (2) Type 2 diabetes mellitus: Code(s): E11.9 - Type 2 diabetes mellitus without complications Status: Acute Assessment and Plan: Hemoglobin A1c 11.2. Patient reports she has not been taking her diabetes medication because she moved and has not continue to see primary care. Restart glipizide. ACHS fingerstick glucose with corrective insulin sliding scale. Ordered additional IV fluids for hyperglycemia as well. (3) Depression with anxiety: Code(s): F41.8 - Other specified anxiety disorders Status: Acute Assessment and Plan: Patient very anxious easily tearful. She nearly left AMA after being notified of lung nodule. (4) Lung nodule seen on imaging study: Code(s): R91.1 - Solitary pulmonary nodule Status: Acute Assessment and Plan: Right-sided upper lobe and lower lobe nodules noted with recommended low-dose CT or PET-CT in 3 months Plan admit to [facility] resume home medications diabetic diet with Accu-Cheks patient will need primary care close to home, she lives in [place] patient will need prescription for glucose control upon discharge DS: Summary Hospital Course Hospital Course: Patient was admitted with chest pain. Patient CT chest with negative troponins negative. Pain is history of diabetes along noted. Patient was continued on diabetic medication. Today patient is feeling better so patient discharged in stable condition. Workup were noted scheduled as an outpatient. Cardiology consultation scheduled with outpatient. Status at Discharge Cognitive/behavioral status at discharge: Stable Time Spent with Patient Time attestation: Total time spent providing and/or coordinating discharge services: Exam Narrative: GENERAL: Anxious appearing, alert and oriented, no acute distress. HEENT: Pupils are equally round and briskly reactive to light. Extraocular muscles are intact. Oral mucous membranes are moist without lesions. NECK: The patient has no noted JVD. No adenopathy is appreciated. CHEST/LUNGS: Lungs are clear bilaterally without rhonchi, rales, or wheezes. There is no subcutaneous air appreciated. HEART: The patient has a regular rate and rhythm. No murmurs, rubs, or gallops are appreciated. Distal pulses are 2+. ABDOMEN: The patient's abdomen is soft, nontender, and nondistended. Bowel sounds are positive. No organomegaly is appreciated. No masses are appreciated. There are no peritoneal signs. There is no Ponce's sign. EXTREMITIES: The patient has no peripheral edema. There is no focal long bone tenderness or deformity. SKIN: The patient's skin is warm and dry, without rashes or lesions. PSYCHIATRIC: The patient has normal mental status and has an appropriate affect. NEUROLOGIC: There are no gross deficits to the cranial nerves. Patient Moves all extremities well 5/5 strength DS: Data Data Completed and Pending Labs on day of discharge: Labs from last 24 hours 06/14/23 06/14/23 06/13/23 08:16 05:23 21:09 WBC 5.9 RBC 4.17 L Hgb 13.7 Hct 40.4 MCV 96.9 MCH 32.9 MCHC 33.9 RDW 13.5 Plt Count 160 MPV 11.2 H Immature Gran % (Auto) Neut % (Auto) Lymph % (Auto) [place] % (Auto) Eos % (Auto) Baso % (Auto) Lymph # (Auto) [place] # (Auto) Eos # (Auto) Baso # (Auto) Abs Immat Gran (auto) Absolute Neuts (auto) Absolute Nucleated RBC Nucleated RBC % PT INR APTT Sodium 136 L Potassium 3.9 Chlorid
== END 2023-06-14 11:30 | disposition home or self-care (01) ==
LOC: ANHED 12:34 → ANH2MED 20:03
PROVIDERS: Emergency Medicine; Nurse Practitioner; Admitting Provider Chiropractor; Emergency Provider Nurse Practitioner Family; Visit Provider Internal Medicine
DX: R07.89 Other chest pain (principal); R91.1 Solitary pulmonary nodule; E11.9 Type 2 diabetes mellitus without complications; E78.5 Hyperlipidemia, unspecified; E03.9 Hypothyroidism, unspecified; M06.9 Rheumatoid arthritis, unspecified; M79.7 Fibromyalgia; F41.8 Other specified anxiety disorders; Z79.84 Long term (current) use of oral hypoglycemic drugs; Z79.85 Long-term (current) use of injectable non-insulin antidiabetic drugs; F17.210 Nicotine dependence, cigarettes, uncomplicated
CPT/HCPCS: 36415; 71046; 71275; 80053; 82948; 83036; 83690; 84484; 85025; 85027; 85610; 85730; 93005; 96360; 96361; 96372; 99285; A9270; G0378; J1650; J1815; J7030; Q9967

== ENCOUNTER 2023-08-06 16:08 | Emergency (ER) | payer MEDICARE, SELFPAY ==
--- NOTE | ~2023-08-06 | XR_ITS ---
EXAMINATION: XR chest 1V portable DATE: 08/06/2023 16:40 INDICATION: Cough and congestion TECHNIQUE: frontal view of the chest was obtained. COMPARISON: Chest radiograph and CT dated 06/13/23 FINDINGS: Heart size is normal with moderate-sized left paracardial fat pad extending from the apex of heart ac ross the costophrenic angle. No focal airspace opacities, pulmonary edema, pleural effusion or pneumo thorax. Heart size is normal. Visualized bones and soft tissues are unremarkable. IMPRESSION: 1. No acute cardiopulmonary disease. Reviewed, dictated and finalized at location A. CREW SUPERVISOR
[2023-08-06 16:08] VITALS: BP 135/94; PULSE 97; RESP 20; TEMP 36.2; O2SAT 95
[2023-08-06 16:17] VITALS: O2SAT 95
[2023-08-06 17:00] VITALS: BP 122/69; PULSE 81; RESP 18; O2SAT 92
[2023-08-06 17:37] LABS: Influenza A QL RT-PCR Negative (Negative); Influenza B QL RT-PCR Negative (Negative); RSV RNA, RT-PCR Negative (Negative); SARS-CoV-2 RNA PCR Negative (Negative)
--- NOTE | 2023-08-06 17:39 | ED.URI ---
HPI - URI/Sore Throat General Chief Complaint: Upper Respiratory Infection Stated Complaint: cough Time Seen by Provider: 08/06/23 16:18 Source: patient Mode of arrival: ambulatory Limitations: no limitations History of Present Illness HPI Narrative: this is a 53-year-old female with cough congestion with 8 day history with no fever chills no shortness of breaths no nausea vomiting no chest pain no abdominal pain no flank pain. The patient states that cough and congestion started approximately 8 days ago does have a history of smoking with no audible wheezing currently no chest pain or shortness of breath. MD elicited complaint: cough and nasal congestion Onset (ago): day(s) Consistency: constant Severity: moderate Description of mucous: clear Able to tolerate fluids by mouth: Yes Related Data Home Medications Medication Instructions Recorded Confirmed atorvastatin 40 mg tablet 40 mg PO DAILY 11/11/21 08/06/23 empagliflozin 10 mg tablet 10 mg PO BID 11/11/21 08/06/23 (Jardiance) hydroxychloroquine 200 mg tablet 200 mg PO BID 11/11/21 08/06/23 levothyroxine 200 mcg tablet 200 mcg PO DAILY 11/11/21 08/06/23 levothyroxine 25 mcg tablet 25 mcg PO DAILY 11/11/21 08/06/23 lorazepam 1 mg tablet 1 mg PO QID PRN Anxiety 11/11/21 08/06/23 semaglutide 14 mg tablet (Rybelsus) 14 mg PO QAM 11/11/21 08/06/23 bupropion HCl 150 mg 24 hr tablet, 150 mg PO DAILY 09/04/22 08/06/23 extended release citalopram 40 mg tablet 40 mg PO DAILY 09/04/22 08/06/23 tramadol 50 mg tablet 50 mg PO QID PRN Pain 06/13/23 08/06/23 Allergies Allergy/AdvReac Type Severity Reaction Status Date / Time Sulfa (Sulfonamide Allergy Severe Anaphylactic Verified 08/06/23 16:20 Antibiotics) Shock cephalexin [From Keflex] Allergy Rash Verified 08/06/23 16:20 gabapentin AdvReac Confusion Verified 08/06/23 16:20 Review of Systems Review of Systems: All systems reviewed & are unremarkable except as noted in HPI and below PMFSH Past Medical History Medical History Arthritis Depression with anxiety Fibromyalgia Type 2 diabetes mellitus Surgical History Surgical History H/O elbow surgery History of section Hx of cholecystectomy Social History Social History Smoking packs per day: 1 Smoking cigarettes per day: 20.0 Years smoked: 37 Smoking pack-years: 37.00 Smoking status: Current every day smoker Tobacco type: cigarettes Second hand tobacco smoke exposure: No Alcohol intake: never Substance use: never Substance use type: does not use Lack of Transportation: YES Lack of Food: Sometimes True Current Housing: I Have Housing Concerned About Future Housing: No Difficulty Paying Gas/Electric Bills: No Difficulty Paying for Meds: No Currently Unemployed: No Education: Bachelor's Degree Difficulty w/ Childcare or Family Care: No Spiritual care concerns: No Exam Const: General: healthy appearing Nutritional Appearance: well nourished Orientation/consciousness: patient oriented x3 Limitations: no limitations HENMT: Head: normal to inspection Neck: Neck: normal visual inspection and no lymphadenopathy Chest: Chest palpation & inspection: normal inspection of the chest Resp: Effort & Inspection: normal respiratory effort Auscultation: clear to auscultation bilaterally Cardio: Rate: regular rate Rhythm: regular rhythm GI: GI Palp: Yes Soft to palpation Skin: General skin exam: normal color Rashes: no rashes Neuro: General: patient oriented x3 and moves all extremities Extrem: General: normal to inspection and no clubbing, cyanosis or edema Psych: Mental Status: mental status grossly normal Affect: normal affect Course Course Emergency Course: Patient received a dose of p.o. Zithromax, had x-ray which showed no
[2023-08-06 17:49] VITALS: BP 127/82; PULSE 79; RESP 18; O2SAT 95
[2023-08-06] MEDS: AZITHROMYCIN 250 MG TABLET 500 MG PO (17:58)
== END 2023-08-06 18:01 | disposition home or self-care (01) ==
PROVIDERS: Emergency Provider Emergency Medicine; PCP Internal Medicine
DX: J06.9 Acute upper respiratory infection, unspecified (principal); E11.9 Type 2 diabetes mellitus without complications; F17.210 Nicotine dependence, cigarettes, uncomplicated; Z20.822 Contact with and (suspected) exposure to COVID-19; Z79.899 Other long term (current) drug therapy; Z79.891 Long term (current) use of opiate analgesic
CPT/HCPCS: 71045; 87637; 99283; A9270

== ENCOUNTER 2023-08-24 10:06 | Outpatient (CLI) | payer MEDICARE, SELFPAY ==
[2023-08-24 19:26] LABS: Basophils Percent Auto 0.5 % (0.2-1.2); Eosinophils Absolute Auto 0.5 K/mm3 (0-0.3); Eosinophils Percent Auto 6.3 % (0-4.4); Hematocrit 43.6 % (37.0-47.0); Hemoglobin 14.4 g/dL (12.0-15.0); Immature Granulocyte Absolute 0.02 K/mm3 (0.00-0.031); Immature Granulocyte Percent A 0.2 % (0-0.5); Lymphocytes Absolute Auto 2.21 K/mm3 (0.9-3.2); Lymphocytes Percent Auto 27.3 % (18.3-44.2); Mean Corpuscular Hemoglobin 31.6 pg (26-34); Mean Corpuscular Volume 95.6 fl (80-100); Monocytes Absolute Auto 0.4 K/mm3 (0.1-0.6); Monocytes Percent Auto 5.2 % (2.6-8.5); Neutrophils Absolute Auto 4.9 K/mm3 (1.3-6.7); Neutrophils Percent Auto 60.5 % (45.5-73.1); Platelet Count Result 227 k/mm3 (150-375); Red Blood Count 4.56 M/mm3 (4.2-5.4); Red Cell Distribution Width 13.2 % (11.5-14.5); White Blood Count 8.1 K/mm3 (4.5-10.0)
[2023-08-24 21:13] LABS: Vitamin D 25 Hydroxy 22.2 ng/mL
[2023-08-24 21:16] LABS: Alanine Aminotransferase 33 U/L (6-35); Albumin Level 4.7 g/dL (3.5-5.1); Alkaline Phosphatase 89 U/L (38-126); Anion Gap 13 mmol/L (8-16); Aspartate Amino Transferase 27 U/L (14-36); Bilirubin,Total 0.6 mg/dL (0.2-1.3); Blood Urea Nitrogen 13 mg/dL (7-17); Calcium 9.8 mg/dL (8.4-10.2); Carbon Dioxide 25 mmol/L (22-30); Chloride 99 mmol/L (98-107); Cholesterol 214 mg/dL (0-200); Estimated Glomerular Filt Rate > 60; Glucose 234 mg/dL (65-110); HDL Direct 37 mg/dL; Potassium 3.8 mmol/L (3.4-5.0); Sodium 137 mmol/L (137-145); Triglycerides 237 mg/dL (<150)
[2023-08-24 21:34] LABS: LDL Cholesterol Direct 120 mg/dL
[2023-08-24 22:26] LABS: Hemoglobin A1C 8.6 % (<5.7)
== END 2023-08-24 10:07 | disposition home or self-care (01) ==
PROVIDERS: PCP Internal Medicine; Visit Provider Nurse Practitioner
DX: E03.9 Hypothyroidism, unspecified (principal); E11.9 Type 2 diabetes mellitus without complications; E55.9 Vitamin D deficiency, unspecified
CPT/HCPCS: 36415; 80053; 80061; 82306; 83036; 84443; 85025

== ENCOUNTER 2023-11-02 12:59 | Outpatient (CLI) | payer MEDICARE, SELFPAY ==
--- NOTE | ~2023-11-02 | CT_ITS ---
CT Scan of the Chest without Contrast: Clinical Indication: Pulmonary nodule Technique: Contiguous sections were acquired throughout the chest without intravenous contrast. Dose reduction technique was used on this scan by utilizing automated exposure control and iterative recon struction technique. The dose-length product (DLP) was 334.46 mGy-cm. COMPARISON: 06/13/2023 Findings: There is no evidence of any significant mediastinal, hilar or axillary lymphadenopathy. The mediastin al soft tissues appear normal. There is no evidence of pleural or pericardial effusion. Stable 5 mm right lower lobe pulmonary nodule (axial image 63). Stable 10 mm nodule versus lymph node adjacent to the right hilar region. Images through the upper abdomen reveal no abnormalities. Impression: Stable pulmonary nodules, as above. Reviewed, dictated and finalized at location . Y PROCESSING SUPERVISOR Impression: Stable pulmonary nodules, as above.
== END 2023-11-02 13:00 ==
LOC: MICIMG 13:00
PROVIDERS: PCP Internal Medicine; Visit Provider Nurse Practitioner
DX: R91.1 Solitary pulmonary nodule (principal); R91.8 Other nonspecific abnormal finding of lung field
CPT/HCPCS: 71250

== ENCOUNTER 2024-04-18 10:42 | Outpatient (CLI) | payer MEDICARE, SELFPAY ==
[2024-04-18 10:53] LABS: Basophils Absolute Auto 0.03 K/mm3 (0.00-0.10); Basophils Percent Auto 0.5 % (0.0-1.0); Eosinophils Absolute Auto 0.38 K/mm3 (0.02-0.50); Eosinophils Percent Auto 6.3 % (1.0-6.0); Hematocrit 41.6 % (35.0-49.0); Hemoglobin 13.7 g/dL (12.0-15.0); Immature Granulocyte Absolute 0.02 K/mm3 (0.00-0.00); Immature Granulocyte Percent A 0.3 % (0.0-0.0); Lymphocytes Absolute Auto 1.49 K/mm3 (1.10-4.50); Lymphocytes Percent Auto 24.5 % (18.0-42.0); Mean Corpuscular HGB Conc 32.9 g/dL (32-36); Mean Corpuscular Hemoglobin 29.4 pg (27.0-31.0); Mean Corpuscular Volume 89.3 fL (78.0-102.0); Mean Platelet Volume 10.4 fl (9.2-11.8); Monocytes Absolute Auto 0.27 K/mm3 (0.10-0.90); Monocytes Percent Auto 4.4 % (2.0-11.0); Neutrophils Absolute Auto 3.89 K/mm3 (1.70-7.20); Platelet Count Result 199 K/mm3 (150-420); Red Blood Count 4.66 M/mm3 (4.20-5.40); Red Cell Distribution Width 13.5 % (11.6-14.4); White Blood Count 6.1 K/mm3 (4.8-10.8)
[2024-04-18 11:46] LABS: Alanine Aminotransferase 38 U/L (14-59); Albumin Level 3.8 g/dL (3.4-5.0); Alkaline Phosphatase 117 U/L (46-116); Anion Gap 12 mmol/L (4-12); Aspartate Amino Transferase 12 U/L (15-37); Bilirubin,Total 0.5 mg/dL (0.00-1.00); Blood Urea Nitrogen 9 mg/dL (7-18); Calcium 8.8 mg/dL (8.5-10.1); Carbon Dioxide 23 mmol/L (21-32); Chloride 103 mmol/L (98-108); Cholesterol 136 mg/dL (0-200); Estimated Glomerular Filt Rate > 60; Glucose 246 mg/dL (70-99); HDL Direct 35 mg/dL (40-60); LDL Cholesterol Calculated 72 mg/dL (<130); Osmolality Calculated 292 mOsm/kg (285-295); Potassium 4.3 mmol/L (3.5-5.1); Sodium 138 mmol/L (136-145); Total Protein 6.5 g/dL (6.4-8.2); Triglycerides 145 mg/dL (0-150)
[2024-04-18 11:51] LABS: Thyroid Stimulating Hormone < 0.01 uIU/mL (0.36-3.74)
[2024-04-18 14:04] LABS: Hemoglobin A1C 9.6 % (<5.7)
[2024-04-20 01:59] LABS: Vitamin D 25 Hydroxy 27 ng/mL (30-100)
== END 2024-04-18 10:43 | disposition home or self-care (01) ==
PROVIDERS: PCP Nurse Practitioner; Visit Provider Nurse Practitioner
DX: E55.9 Vitamin D deficiency, unspecified (principal); E11.9 Type 2 diabetes mellitus without complications; E03.9 Hypothyroidism, unspecified
CPT/HCPCS: 36415; 80053; 80061; 82306; 83036; 84443; 85025

== ENCOUNTER 2024-06-29 12:40 | Emergency (ER) | payer MEDICARE, SELFPAY ==
[2024-06-29 12:40] VITALS: BP 128/79; PULSE 74; RESP 16; TEMP 36.7; O2SAT 95
--- NOTE | 2024-06-29 12:48 | ED.EYEPROB ---
HPI - Eye Problem General Chief complaint: Eye Problems Stated complaint: eye irritation Time Seen by Provider: 06/29/24 12:47 Source: patient Mode of arrival: ambulatory Limitations: no limitations History of Present Illness HPI Narrative: 54-year-old female with a history of smoking, anxiety / depression, fibromyalgia, diabetes mellitus with an A1c of 9.6, hypothyroidism presents to the ED with a 1 day history of -- left upper eyelid swelling with mucopurulent discharge. No fever or chills. No upper respiratory symptoms. Her vision is intact. Right eye is unaffected MD chief complaint: other ( left upper eyelid pain) Onset (ago): day(s) ( 1 day) Onset description: gradual Duration: constant Location: left eye Eye Symptoms: redness, pain and discharge Place: home Mechanism: none Severity: moderate If Pain, Quality: aching Associated symptoms: none Treatments Prior to Arrival: none Related Data Home Medications Medication Instructions Recorded Confirmed cholecalciferol (vitamin D3) 50 50 mcg PO DAILY 10/08/23 04/19/24 mcg (2,000 unit) capsule Allergies Allergy/AdvReac Type Severity Reaction Status Date / Time Sulfa (Sulfonamide Allergy Severe Anaphylactic Verified 04/19/24 09:03 Antibiotics) Shock cephalexin [From Keflex] Allergy Rash Verified 04/19/24 09:03 gabapentin AdvReac Confusion Verified 04/19/24 09:03 Review of Systems Review of Systems: All systems reviewed & are unremarkable except as noted in HPI and below Constitutional: Constitutional: Reports as per HPI and Reports no additional constitutional complaints Eyes: Eyes: Reports as per HPI Comments: left upper eyelid pain with mucopurulent discharge ENT: Reports system reviewed and no additional complaints, except as documented and Reports as per HPI Cardiovascular: Cardiovascular: Reports as per HPI and Reports no additional cardiovascular complaints Gastrointestinal: Gastrointestinal: Reports as per HPI and Reports no additional gastrointestinal complaints Genitourinary: Genitourinary: Reports no additional female genitourinary complaints and Reports as per HPI Musculoskeletal: Musculoskeletal: Reports no additional musculoskeletal complaints and Reports as per HPI Integumentary/Breasts: Skin/Breast: Reports system reviewed and no additional complaints, except as docu and Reports as per HPI Neurologic: Reports system reviewed and no additional complaints, except as documented and Reports as per HPI Psychiatric: Psychiatric: Reports no additional psychiatric complaints and Reports as per HPI Endocrine: Endocrine: Reports no additional endocrine complaints and Reports as per HPI Hematologic/Lymphatic: Hematologic/Lymphatic: Reports no additional hematologic/lymphatic complaints and Reports as per HPI Allergic/Immunologic: Allergic/Immunologic: Reports no additional allergic/immunologic complaints and Reports as per HPI PMFSH Past Medical History Medical History Arthritis Depression with anxiety Fibromyalgia Type 2 diabetes mellitus Surgical History Surgical History H/O elbow surgery History of section Hx of cholecystectomy Family History Family History Father Alcoholism Hypertension Heart disease Grandparent Hypertension Heart disease Diabetes mellitus Cancer of kidney Mother Depression with anxiety Thyroid disorder Fibromyalgia Lung cancer Sibling Thyroid disorder Social History Social History Smoking packs per day: 1 Smoking cigarettes per day: 20.0 Years smoked: 37 Smoking pack-years: 37.00 Smoking status: Current every day smoker Tobacco type: cigarettes Second hand tobacco smoke exposure: No Alcohol intake: never Substance use: never Substa
[2024-06-29] MEDS: TETANUS,DIPHTHERIA,AC PERTUSSIS ADULT 0.5 ML (ADACEL) IM (13:16)
== END 2024-06-29 13:21 | disposition home or self-care (01) ==
LOC: CHSED 13:15
PROVIDERS: Emergency Provider Internal Medicine Critical Care Medicine; PCP Internal Medicine
DX: H00.014 Hordeolum externum left upper eyelid (principal); E11.9 Type 2 diabetes mellitus without complications; E03.9 Hypothyroidism, unspecified; F17.210 Nicotine dependence, cigarettes, uncomplicated; Z23 Encounter for immunization
CPT/HCPCS: 90471; 90715; 99283

== ENCOUNTER 2025-06-25 13:20 | Emergency (ER) | payer MEDICARE, SELFPAY ==
--- NOTE | ~2025-06-25 | XR_ITS ---
EXAMINATION: XR chest 2V, 06/25/2025 14:10 CDT HISTORY: sob/ weakness/ nausea/ dizziness x2 days COMPARISON: No comparisons available. Technique: 2 views obtained. Findings: Small left basilar infiltrate with trace effusion. No pneumothorax. Heart is normal size. Mediastinal and hilar contours are within normal limits. Bony thorax no acute abnormality. Impression: Minimal early left lower lobe pneumonia is suspected Reviewed, dictated and finalized at location P. Impression: Minimal early left lower lobe pneumonia is suspected
[2025-06-25 13:20] VITALS: BP 122/85; PULSE 75; RESP 16; TEMP 36.1; O2SAT 95
--- NOTE | 2025-06-25 13:37 | ED.GENADULT ---
HPI - General Adult General Chief complaint: Unspecified Stated complaint: dizzy, nausea Time Seen by Provider: 06/25/25 13:37 Source: patient Mode of arrival: ambulatory Limitations: no limitations History of Present Illness HPI narrative: Patient is a 55-year-old female with a 2 day history of nausea with shakiness and short of breath and lightheaded and dizzy. She has no current complaints of anxiety today. No abdominal pain. No chest pain. Onset (ago): day(s) (Two) Location: head (Dizziness and lightheaded) Radiation: non-radiation Severity: mild Severity scale (1-10): 3 Quality: other (No pain) Pain Consistency: other (No pain) Relieving factors: none Exacerbating factors: none Associated symptoms: malaise and nausea/vomiting (No vomiting) Treatments prior to arrival: none Related Data Home Medications ?Medication ?Instructions ?Recorded ?Confirmed ?Last Taken ?Type cholecalciferol (vitamin D3) 50 50 mcg PO DAILY 10/08/23 07/21/24 Unknown History mcg (2,000 unit) capsule hydroxychloroquine 200 mg tablet 200 mg PO DAILY 07/21/24 07/21/24 Unknown History methotrexate sodium 2.5 mg tablet See Rx Instructions .Route .COMPLEX 07/21/24 07/21/24 Unknown History Allergies Allergy/AdvReac Type Severity Reaction Status Date / Time Sulfa (Sulfonamide Allergy Severe Anaphylactic Verified 06/25/25 13:30 Antibiotics) Shock cephalexin (From Keflex) Allergy Rash Verified 06/25/25 13:30 gabapentin AdvReac Confusion Verified 06/25/25 13:30 Review of Systems Review of Systems: All systems reviewed & are unremarkable except as noted in HPI and below Constitutional: Constitutional: Reports no additional constitutional complaints Eyes: Eyes: Reports no additional eye complaints ENT: Reports system reviewed and no additional complaints, except as documented Cardiovascular: Cardiovascular: Reports no additional cardiovascular complaints Respiratory: Respiratory: Reports no additional respiratory complaints Gastrointestinal: Gastrointestinal: Reports no additional gastrointestinal complaints Genitourinary: Genitourinary: Reports no additional female genitourinary complaints Musculoskeletal: Musculoskeletal: Reports no additional musculoskeletal complaints Integumentary/Breasts: Skin/Breast: Reports system reviewed and no additional complaints, except as docu Neurologic: Reports system reviewed and no additional complaints, except as documented Psychiatric: Psychiatric: Reports no additional psychiatric complaints Endocrine: Endocrine: Reports no additional endocrine complaints Hematologic/Lymphatic: Hematologic/Lymphatic: Reports no additional hematologic/lymphatic complaints Allergic/Immunologic: Allergic/Immunologic: Reports no additional allergic/immunologic complaints PMFSH Past Medical History Medical History CREST syndrome Followed by Rheum Depression with anxiety Fibromyalgia Arthritis Type 2 diabetes mellitus Surgical History Surgical History H/O elbow surgery Hx of cholecystectomy History of section Family History Family History Father Alcoholism Hypertension Heart disease Grandparent Hypertension Heart disease Diabetes mellitus Cancer of kidney Mother Depression with anxiety Thyroid disorder Fibromyalgia Lung cancer Sibling Thyroid disorder Social History Social History Smoking packs per day: 1 Smoking cigarettes per day: 20.0 Years smoked: 37 Smoking pack-years: 37.00 Smoking status: Current every day smoker Tobacco type: cigarettes Second hand tobacco smoke exposure: No Alcohol intake: never Substance use: never Substance use type: does not use Do You Feel Safe in your Home?: Yes Lack of Transportation: YES Lack of Food: Sometimes True Current Housing: I Have Housing Concerned About Future Housing: No Difficulty Paying Gas/Electric Bills: No Difficulty Paying for Meds: No Currently Unemployed: No Education: Associate Degree Difficulty w/ Childcare or Family Care: No Spiritual care concerns: No Exam Const: General: cooperative, healthy appearing and comfortable HENMT: Head: normal to inspection, No palpable skull fracture present and normocephalic Eyes: General: appearance normal, both eyes and all related structures Visual Fitzpatrick: normal visual fitzpatrick by confrontation Alignment and Position: alignment normal Neck: Neck: normal visual inspection, full ROM and no lymphadenopathy Chest: Chest palpation & inspection: normal inspection of the chest, normal palpation of entire chest wall and normal inspection of the chest Resp: Effort & Inspection: normal respiratory effort, able to speak in complete sentences and normal respiratory pattern Auscultation: clear to auscultation bilaterally, no crackles, no rales, no rhonchi and no wheezes Cardio: Jugular venous distension: no JVD Palpation: normal PMI Rate: regular rate Rhythm: regular rhythm Heart sounds: S1 normal heart sound present and S2 normal heart sound present GI: Inspection: normal to inspection, no abdominal wall ecchymosis, no edema and non-distended GI Palp: No abdominal tenderness, Yes Soft to palpation, No Firmness to palpation present (GI) and No Tenderness to palpation present (GI) Auscultation: normal bowel sounds Back/Spine/Pelvis: Back: no CVA tenderness, No CVA tenderness, No mass and No erythema Skin: General skin exam: normal color, no rashes or lesions noted and elasticity normal Neuro: General: patient oriented x3, gait normal, tone normal, moves all extremities and CN's II-XI intact bilaterally Extrem: General: normal to inspection, full ROM and capillary refill normal Psych: Appearance: grossly normal Mental Status: mental status grossly normal Speech and movement: Normal speech and movement present Course Vital Signs Vital signs: Vital Signs Temperature 36.1 C L 06/25/25 13:20 Pulse Rate 75 06/25/25 13:20 Respiratory Rate 16 06/25/25 13:20 Blood Pressure 122/85 06/25/25 13:20 Pulse Oximetry 95 06/25/25 13:20 Oxygen Delivery Room Air 06/25/25 13:20 Temperature 36.1 C L 06/25/25 13:20 Pulse Rate 75 06/25/25 13:20 Respiratory Rate 16 06/25/25 13:20 Blood Pressure 122/85 06/25/25 13:20 Pulse Oximetry 95 06/25/25 13:20 Oxygen Delivery Room Air 06/25/25 13:20 Medical Decision Making MDM Narrative Medical decision making narrative: Patient is a 55-year-old female with multiple nonspecific complaints at this time of multiple systems here for evaluation. We will do a general workup at this time. Vital Signs Vital Signs: Vital Signs Temperature 36.1 C L 06/25/25 13:20 Pulse Rate 75 06/25/25 13:20 Respiratory Rate 16 06/25/25 13:20 Blood Pressure 122/85 06/25/25 13:20 Pulse Oximetry 95 06/25/25 13:20 Oxygen Delivery Room Air 06/25/25 13:20 Temperature 36.1 C L 06/25/25 13:20 Pulse Rate 75 06/25/25 13:20 Respiratory Rate 16 06/25/25 13:20 Blood Pressure 122/85 06/25/25 13:20 Pulse Oximetry 95 06/25/25 13:20 Oxygen Delivery Room Air 06/25/25 13:20 Lab Data Lab results reviewed: Yes I reviewed the patient's lab results. 06/25/25 14:06 06/25/25 14:06 Labs: Lab Results 06/25/25 06/25/25 06/25/25 Range/Units 13:29 13:43 14:06 WBC 8.5 (4.8-10.8) K/mm3 RBC 4.60 (4.20-5.40) M/mm3 Hgb 14.6 (12.0-15.0) g/dL Hct 44.1 (35.0-49.0) % MCV 95.9 (78.0-102.0) fL MCH 31.7 H (27.0-31.0) pg MCHC 33.1 (32-36) g/dL RDW 13.9 (11.6-14.4) % Plt Count 217 (150-420) K/mm3 MPV 10.9 (9.2-11.8) fl Immature Gran % (Auto) 0.6 H (0.0-0.0) % Neut % (Auto) 67.0 (50.0-70.0) % Lymph % (Auto) 25.7 (18.0-42.0) % [place] % (Auto) 3.5 (2.0-11.0) % Eos % (Auto) 2.7 (1.0-6.0) % Baso % (Auto) 0.5 (0.0-1.0) % Lymph # (Auto) 2.18 (1.10-4.50) K/mm3 [place] # (Auto) 0.30 (0.10-0.90) K/mm3 Eos # (Auto) 0.23 (0.02-0.50) K/mm3 Baso # (Auto) 0.04 (0.00-0.10) K/mm3 Abs Immat Gran (auto) 0.05 H (0.00-0.00) K/mm3 Absolute Neuts (auto) 5.68 (1.70-7.20) K/mm3 Absolute Nucleated RBC 0.00 (0.00-0.00) K/mm3 Nucleated RBC % 0.0 (0-0.0) % Sodium 142 (137-145) mmol/L Potassium 4.1 (3.4-5.0) mmol/L Chloride 101 (98-107) mmol/L Carbon Dioxide 28 (22-30) mmol/L Anion Gap 13 H (4-12) mmol/L BUN 13 (7-17) mg/dL Creatinine 0.67 L (0.7-1.0) mg/dL Estim Creat Clear Calc 95 ml/min Estimated GFR > 60 (59 - ) Glucose 214 H (65-110) mg/dL POC Capillary Glucose 217 H (65-105) mg/dl Calculated Osmolality 300 H (285-295) mOsm/kg Lactic Acid 1.1 (0.4-2.0) mmol/L Calcium 10.5 H (8.4-10.2) mg/dL Total Bilirubin 0.8 (0.2-1.3) mg/dL AST 25 (14-36) U/L ALT 33 (6-35) U/L Alkaline Phosphatase 92 (38-126) U/L Troponin I < 0.012 (0.000-0.034) ng/mL Total Protein 9.0 H (6.3-8.2) g/dL Albumin 4.9 (3.5-5.1) g/dL Lipase 45 (23-300) U/L Urine Color (Yellow) Urine Appearance (Clear) Urine pH (5.0-8.0) Ur Specific [place] (1.010-1.020) Urine Protein (Negative) Urine Glucose (UA) (Negative) Urine Ketones (Negative) Ur Blood (Man) (Negative) Urine Nitrate (Negative) Urine Bilirubin (Negative) Urine Urobilinogen (0.2-1.0) mg/dL Leukocyte Esterase Rfl (Negative) ARTURO/UL Urine RBC (0-2) /hpf Urine WBC (0-3) /hpf Ur Squamous Epith Cells (Few) /hpf Urine Bacteria (None) /hpf Influenza A (RT-PCR) Negative (Negative) Influenza B (RT-PCR) Negative (Negative) RSV (RT-PCR) Negative (Negative) SARS-CoV-2 RNA (RT-PCR) Negative (Negative) 06/25/25 Range/Units 14:14 WBC (4.8-10.8) K/mm3 RBC (4.20-5.40) M/mm3 Hgb (12.0-15.0) g/dL Hct (35.0-49.0) % MCV (78.0-102.0) fL MCH (27.0-31.0) pg MCHC (32-36) g/dL RDW (11.6-14.4) % Plt Count (150-420) K/mm3 MPV (9.2-11.8) fl Immature Gran % (Auto) (0.0-0.0) % Neut % (Auto) (50.0-70.0) % Lymph % (Auto) (18.0-42.0) % [place] % (Auto) (2.0-11.0) % Eos % (Auto) (1.0-6.0) % Baso % (Auto) (0.0-1.0) % Lymph # (Auto) (1.10-4.50) K/mm3 [place] # (Auto) (0.10-0.90) K/mm3 Eos # (Auto) (0.02-0.50) K/mm3 Baso # (Auto) (0.00-0.10) K/mm3 Abs Immat Gran (auto) (0.00-0.00) K/mm3 Absolute Neuts (auto) (1.70-7.20) K/mm3 Absolute Nucleated RBC (0.00-0.00) K/mm3 Nucleated RBC % (0-0.0) % Sodium (137-145) mmol/L Potassium (3.4-5.0) mmol/L Chloride (98-107) mmol/L Carbon Dioxide (22-30) mmol/L Anion Gap (4-12) mmol/L BUN (7-17) mg/dL Creatinine (0.7-1.0) mg/dL Estim Creat Clear Calc ml/min Estimated GFR (59 - ) Glucose (65-110) mg/dL POC Capillary Glucose (65-105) mg/dl Calculated Osmolality (285-295) mOsm/kg Lactic Acid (0.4-2.0) mmol/L Calcium (8.4-10.2) mg/dL Total Bilirubin (0.2-1.3) mg/dL AST (14-36) U/L ALT (6-35) U/L Alkaline Phosphatase (38-126) U/L Troponin I (0.000-0.034) ng/mL Total Protein (6.3-8.2) g/dL Albumin (3.5-5.1) g/dL Lipase (23-300) U/L Urine Color Light yellow (Yellow) Urine Appearance Clear (Clear) Urine pH 6.0 (5.0-8.0) Ur Specific [place] 1.010 (1.010-1.020) Urine Protein Negative (Negative) Urine Glucose (UA) Negative (Negative) Urine Ketones Negative (Negative) Ur Blood (Man) Negative (Negative) Urine Nitrate Negative (Negative) Urine Bilirubin Negative (Negative) Urine Urobilinogen 0.2 (0.2-1.0) mg/dL Leukocyte Esterase Rfl 1+ H (Negative) ARTURO/UL Urine RBC 0-2 (0-2) /hpf Urine WBC 0-3 (0-3) /hpf Ur Squamous Epith Cells Rare (Few) /hpf Urine Bacteria Trace (None) /hpf Influenza A (RT-PCR) (Negative) Influenza B (RT-PCR) (Negative) RSV (RT-PCR) (Negative) SARS-CoV-2 RNA (RT-PCR) (Negative) Imaging Data Attestation: I personally reviewed and interpreted this imaging study as follows: Radiologist's impression: Chest x-ray shows early left lower lobe pneumonia ECG Data EKG #1: Attestation: I personally reviewed and interpreted this ECG as follows: ECG completion date: 06/25/25 ECG completion time: 14:09 EKG Interpretation: normal rate, sinus rhythm, no ectopy, no ST changes, normal QRS, normal QT, NL axis and no acute changes Discharge Plan Discharge Clinical Impression: Pneumonia Qualifiers: Pneumonia type: due to unspecified organism Laterality: left Lung location: lower lobe of lung Qualified Code(s): J18.9 - Pneumonia, unspecified organism UTI (urinary tract infection) Qualifiers: Urinary tract infection type: site unspecified Hematuria presence: without hematuria Qualified Code(s): N39.0 - Urinary tract infection, site not specified Patient Disposition: Home Condition: Stable Instructions: Antibiotic Form, Community Acquired Pneumonia (DC) Patient Language: Ivorian Prescriptions: New levofloxacin 500 mg tablet 500 mg PO DAILY 7 Days Qty: 7 0RF No Action cholecalciferol (vitamin D3) 50 mcg (2,000 unit) capsule 50 mcg PO DAILY ondansetron HCl 4 mg tablet 4 mg PO Q8H PRN (Reason: nausea and vomiting) Qty: 20 0RF methotrexate sodium 2.5 mg tablet See Rx Instructions .ROUTE .COMPLEX Rx Instructions: 5 tabs in the am and 5 tabs in the pm one daiy weekly; hydroxychloroquine 200 mg tablet 200 mg PO DAILY (DME) blood-glucose meter Kit See Rx Instructions .Route Qty: 1 0RF Rx Instructions: USE TO CHECK BS BID naproxen 500 mg tablet 500 mg PO BID PRN (Reason: pain) Qty: 60 3RF (DME) OneTouch Ultra Test Strip See Rx Instructions .Route Qty: 200 1RF Rx Instructions: Use to check blood twice daily. bupropion HCl 150 mg tablet extended release 24 hr 150 mg PO DAILY Qty: 90 1RF lorazepam 1 mg tablet 1 mg PO DAILY PRN (Reason: Anxiety) Qty: 30 1RF atorvastatin 40 mg tablet 40 mg PO DAILY Qty: 90 1RF glipizide 10 mg tablet 10 mg PO DAILY 90 Days Qty: 90 1RF Ozempic 2 mg/dose (8 mg/3 mL) pen injector 2 mg subcut WEEKLY Qty: 9 3RF levothyroxine 200 mcg tablet 200 mcg PO DAILY Qty: 90 0RF Rx Instructions: Take with 25mcg tablet-NEEDS APPOINTMENT FOR REFILLS sertraline 25 mg tablet 25 mg PO DAILY Qty: 90 0RF Rx Instructions: NEEDS APPOINTMENT FOR REFILLS Follow-up/Referrals: Brittany Field NP [Primary Care Provider, Internal Medicine] Time of Disposition: 14:44
--- NOTE | 2025-06-25 13:56 | ECG_ITS ---
Test Date: 2025-06-25 14:20:01 Measurements Intervals [place] Rate: 68 P: -43 NH: 144 QRS: 5 QRSD: 96 T: 66 QT: 384 QTc: 410 Interpretive Statements SINUS RHYTHM DELAYED PRECORDIAL R/S TRANSITION BORDERLINE ST-T WAVE ABNORMALITY- ANT/HIGH LAT LEADS BASELINE ARTIFACT- I, II, III, AVR, AVL, AVF NO FURTHER INTERPRETATION IS POSSIBLE No previous ECG available for comparison Electronically Signed On 06-25-2025 19:32:24 CDT by Jethro Rossi D.O.
[2025-06-25 14:17] LABS: Hematocrit 44.1 % (35.0-49.0); Hemoglobin 14.6 g/dL (12.0-15.0); Immature Granulocyte Percent A 0.6 % (0.0-0.0); Lymphocytes Absolute Auto 2.18 K/mm3 (1.10-4.50); Mean Corpuscular HGB Conc 33.1 g/dL (32-36); Mean Corpuscular Hemoglobin 31.7 pg (27.0-31.0); Mean Corpuscular Volume 95.9 fL (78.0-102.0); Nucleated Red Blood Cells Absolute Auto 0.00 K/mm3 (0.00-0.00); Nucleated Red Blood Cells Perc 0.0 % (0-0.0); Platelet Count Result 217 K/mm3 (150-420); Red Blood Count 4.60 M/mm3 (4.20-5.40); White Blood Count 8.5 K/mm3 (4.8-10.8)
[2025-06-25 14:20] LABS: Add Urine Microscopic? YES; Appearance Urine Clear (Clear); Glucose Urine UA Negative (Negative); Leukocyte Esterase Ur 1+ LEU/UL (Negative); Nitrate Urine Negative (Negative); Specific Grav Ur 1.010 (1.010-1.020)
[2025-06-25 14:25] LABS: Influenza A QL RT-PCR Negative (Negative); Influenza B QL RT-PCR Negative (Negative); RSV RNA, RT-PCR Negative (Negative); SARS-CoV-2 RNA PCR Negative (Negative)
[2025-06-25 14:35] LABS: Alanine Aminotransferase 33 U/L (6-35); Albumin Level 4.9 g/dL (3.5-5.1); Alkaline Phosphatase 92 U/L (38-126); Anion Gap 13 mmol/L (4-12); Aspartate Amino Transferase 25 U/L (14-36); Bilirubin,Total 0.8 mg/dL (0.2-1.3); Blood Urea Nitrogen 13 mg/dL (7-17); Calcium 10.5 mg/dL (8.4-10.2); Carbon Dioxide 28 mmol/L (22-30); Chloride 101 mmol/L (98-107); Estimated CRCL calculation 95 ml/min; Estimated Glomerular Filt Rate > 60; Glucose 214 mg/dL (65-110); Lipase 45 U/L (23-300); Osmolality Calculated 300 mOsm/kg (285-295); Potassium 4.1 mmol/L (3.4-5.0); Sodium 142 mmol/L (137-145); Total Protein 9.0 g/dL (6.3-8.2)
[2025-06-25 14:45] LABS: Troponin I < 0.012 ng/mL (0.000-0.034)
[2025-06-25 15:07] VITALS: BP 122/74; PULSE 68; RESP 18; TEMP 36.7; O2SAT 99
--- NOTE | 2025-06-28 13:31 | PC.NURSE ---
preliminary urine culture reviewed. gram negative bacilli colony forming
--- NOTE | 2025-06-29 13:49 | PC.NURSE ---
urine culture, reviewed. started on abt. no change needed.
== END 2025-06-25 15:22 | disposition home or self-care (01) ==
PROVIDERS: Emergency Provider Emergency Medicine; PCP Nurse Practitioner
DX: J18.9 Pneumonia, unspecified organism (principal); N39.0 Urinary tract infection, site not specified; F17.210 Nicotine dependence, cigarettes, uncomplicated; Z20.822 Contact with and (suspected) exposure to COVID-19
CPT/HCPCS: 36415; 71046; 80053; 81001; 82948; 83605; 83690; 84484; 85025; 87086; 87186; 87637; 93005; 99284; A9270; J7512

== ENCOUNTER 2025-07-17 10:56 | Outpatient (CLI) | payer MEDICARE, SELFPAY ==
--- NOTE | ~2025-07-17 | XR_ITS ---
EXAMINATION: XR hand RT 2V, 07/17/2025 11:30 CDT HISTORY: RHEUMATOID ARTHRITIS, UNSPECIFIED COMPARISON: No comparisons available. Findings: No acute fracture or malalignment. No significant degenerative changes, no erosions identified Soft tissues unremarkable. Impression: No acute fracture or malalignment. Reviewed, dictated and finalized at location P. Impression: No acute fracture or malalignment.
--- NOTE | ~2025-07-17 | XR_ITS ---
XR lumbar spine min 4V Indication: RHEUMATOID ARTHRITIS, UNSPECIFIED Comparison: None Findings: Mild levoconvex scoliosis. No fracture or subluxation. Moderate loss of disc height L4-5 and L5-S1. Soft tissues unremarkable Impression: No acute abnormality. Reviewed, dictated and finalized at location P. Impression: No acute abnormality.
--- NOTE | ~2025-07-17 | XR_ITS ---
EXAMINATION: XR sacroiliac joints min 3V, 07/17/2025 11:30 CDT HISTORY: RHEUMATOID ARTHRITIS, UNSPECIFIED COMPARISON: No comparisons available. Findings: No acute fracture or malalignment. No sclerosis of the sacroiliac joints, no significant bridging osteophyte formation, no erosions Soft tissues unremarkable. Impression: No acute fracture or malalignment. Reviewed, dictated and finalized at location P. Impression: No acute fracture or malalignment.
--- NOTE | ~2025-07-17 | XR_ITS ---
EXAMINATION: XR foot RT min 3V, 07/17/2025 11:30 CDT HISTORY: RHEUMATOID ARTHRITIS, UNSPECIFIED COMPARISON: No comparisons available. Findings: No acute fracture or malalignment. No significant degenerative changes, no erosions identified Soft tissues unremarkable. Impression: No acute fracture or malalignment. Reviewed, dictated and finalized at location P. Impression: No acute fracture or malalignment.
--- NOTE | ~2025-07-17 | XR_ITS ---
EXAMINATION: XR hand LT 2V, 07/17/2025 11:30 CDT HISTORY: RHEUMATOID ARTHRITIS, UNSPECIFIED COMPARISON: No comparisons available. Findings: No acute fracture or malalignment. No significant degenerative changes, no erosions identified Soft tissues unremarkable. Impression: No acute fracture or malalignment. Reviewed, dictated and finalized at location P. Impression: No acute fracture or malalignment.
--- NOTE | ~2025-07-17 | XR_ITS ---
EXAMINATION: XR foot LT min 3V, 07/17/2025 11:30 CDT HISTORY: RHEUMATOID ARTHRITIS, UNSPECIFIED COMPARISON: No comparisons available. Findings: No acute fracture or malalignment. No significant degenerative changes, no erosions identified Soft tissues unremarkable. Impression: No acute fracture or malalignment. Reviewed, dictated and finalized at location P. Impression: No acute fracture or malalignment.
[2025-07-17 11:48] LABS: Hematocrit 43.7 % (35.0-49.0); Hemoglobin 14.5 g/dL (12.0-15.0); Immature Granulocyte Percent A 0.6 % (0.0-0.0); Lymphocytes Absolute Auto 1.79 K/mm3 (1.10-4.50); Mean Corpuscular HGB Conc 33.2 g/dL (32-36); Mean Corpuscular Hemoglobin 31.6 pg (27.0-31.0); Mean Corpuscular Volume 95.2 fL (78.0-102.0); Nucleated Red Blood Cells Absolute Auto 0.00 K/mm3 (0.00-0.00); Nucleated Red Blood Cells Perc 0.0 % (0-0.0); Platelet Count Result 188 K/mm3 (150-420); Red Blood Count 4.59 M/mm3 (4.20-5.40); White Blood Count 6.8 K/mm3 (4.8-10.8)
[2025-07-17 11:49] LABS: Add Urine Microscopic? NO; Appearance Urine Clear (Clear); Glucose Urine UA Trace (Negative); Leukocyte Esterase Ur Negative (Negative); Nitrate Urine Negative (Negative); Specific Grav Ur >= 1.030 (1.010-1.020)
[2025-07-17 12:02] LABS: MALB Creatinine Ratio 7.0 mg/g (0-30)
[2025-07-17 12:24] LABS: Alanine Aminotransferase 29 U/L (6-35); Albumin Level 4.8 g/dL (3.5-5.1); Alkaline Phosphatase 98 U/L (38-126); Anion Gap 11 mmol/L (4-12); Aspartate Amino Transferase 21 U/L (14-36); Bilirubin,Total 0.7 mg/dL (0.2-1.3); Blood Urea Nitrogen 17 mg/dL (7-17); CRP < 0.5 mg/dL (<1.0); Calcium 9.9 mg/dL (8.4-10.2); Carbon Dioxide 23 mmol/L (22-30); Chloride 105 mmol/L (98-107); Estimated Glomerular Filt Rate > 60; Glucose 228 mg/dL (65-110); Osmolality Calculated 296 mOsm/kg (285-295); Potassium 4.2 mmol/L (3.4-5.0); Sodium 139 mmol/L (137-145); Total Protein 8.0 g/dL (6.3-8.2); Uric Acid 2.6 mg/dL (2.5-7.5)
[2025-07-17 12:52] LABS: Thyroid Stimulating Hormone 0.170 uIU/mL (0.465-4.680)
[2025-07-18 12:08] LABS: Anti-CCP Ab, IgG/IgA 9 units (0-19)
[2025-07-18 16:08] LABS: Deamidated Gliadin Abs, IgA 3 units (0-19); Deamidated Gliadin Abs, IgG 1 units (0-19); Immunoglobulin A, Qn 124 mg/dL (87-352)
[2025-07-19 11:08] LABS: ANA by IFA Rfx Titer/Pattern Positive (.)
[2025-07-19 14:09] LABS: Saccharomyces cerevisiae, IgA <20.0 Units (0.0-24.9); Saccharomyces cerevisiae, IgG <20.0 Units (0.0-24.9)
[2025-07-21 12:08] LABS: HLA-B27 Negative (.)
== END 2025-07-17 10:57 | disposition home or self-care (01) ==
LOC: CHSLAB 11:00
PROVIDERS: PCP Family Medicine; Visit Provider Internal Medicine
DX: M06.9 Rheumatoid arthritis, unspecified (principal); E03.9 Hypothyroidism, unspecified; M34.1 CR(E)ST syndrome; E11.9 Type 2 diabetes mellitus without complications; M79.7 Fibromyalgia; M10.9 Gout, unspecified; R53.83 Other fatigue
CPT/HCPCS: 36415; 72110; 72202; 73120; 73630; 80053; 80074; 81003; 81374; 82043; 82784; 84100; 84443; 84550; 85025; 85652; 86037; 86038; 86140; 86200; 86231; 86235; 86258; 86430; 86480; 86671; 86706